=== PATIENT | male | born 1985 | race Caucasian/White ===

== ENCOUNTER 2024-09-29 13:10 | Emergency (ER) | payer SELFPAY ==
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
[2024-09-29] MEDS: LIDOCAINE 2%-EPI 1:100,000 20 ML VIAL SQ STA (13:58)
[2024-09-29 14:32] VITALS: BP 138/85; PULSE 116; RESP 16; TEMP 98.8
== END 2024-09-29 14:58 | disposition home or self-care (01) ==
LOC: EC 13:10
DX: L02.414 Cutaneous abscess of left upper limb (principal); F17.290 Nicotine dependence, other tobacco product, uncomplicated
CPT/HCPCS: 10060; 99282